=== PATIENT | female | born 1970 | race Asian ===

== ENCOUNTER → 2019-09-18 07:43 | Outpatient (CLI) | payer OTHER, SELFPAY ==
--- NOTE | 2019-09-18 | DI.MG.S_ITS ---
BILATERAL DIGITAL SCREENING MAMMOGRAM 3D/2D WITH CAD: 09/18/2019 Comparison is made to exams dated: 08/13/2018 mammogram, 06/20/2017 mammogram, and 06/02/2016 mammogram - [facility]. The tissue of both breasts is heterogeneously dense. This may lower the sensitivity of mammography. Current study was also evaluated with a Computer Aided Detection (CAD) system. There are benign calcifications in both breasts. There also is a biopsy clip in the left breast. No significant masses, calcifications, or other findings are seen in either breast. There has been no significant interval change. IMPRESSION: There is no mammographic evidence of malignancy. A 1 year screening mammogram is recommended. This exam was interpreted at Station ID: [id number]. NOTE: For mammograms, a report in lay terms will be sent to the patient. Approximately 15% of breast malignancies will not be visualized mammographically. In the management of a palpable breast mass, a negative mammogram must not discourage biopsy of a clinically suspicious lesion. Electronically Signed By: Tate colon/omar:09/18/2019 09:14:51 letter sent: Normal Exam ACR BI-RADS Category 2: Benign Finding(s) 3342F
== END ==
PROVIDERS: Family Provider Nurse Practitioner Family; PCP Nurse Practitioner Family; Referring Provider Family Medicine; Visit Provider Family Medicine
DX: Z12.31 Encounter for screening mammogram for malignant neoplasm of breast (principal)
CPT/HCPCS: 77063; 77067

== ENCOUNTER → 2020-11-17 15:47 | Outpatient (CLI) | payer OTHER, SELFPAY ==
--- NOTE | 2020-11-17 15:51 | DI.MG.S_ITS ---
BILATERAL DIGITAL SCREENING MAMMOGRAM 3D/2D WITH CAD: 11/17/2020 CLINICAL: Routine screening. Comparison is made to exams dated: 09/18/2019 mammogram - [facility], 08/27/2018 mammogram, 08/13/2018 mammogram, 06/20/2017 mammogram, 06/02/2016 mammogram, and 08/27/2018 ultrasound - [facility] [place]. The tissue of both breasts is heterogeneously dense. This may lower the sensitivity of mammography. Current study was also evaluated with a Computer Aided Detection (CAD) system. There are benign cysts in the right breast. There also are benign calcifications in both breasts. Additionally, there is a biopsy clip in the left breast. No significant masses, calcifications, or other findings are seen in either breast. There has been no significant interval change. IMPRESSION: BENIGN There is no mammographic evidence of malignancy. A 1 year screening mammogram is recommended. This exam was interpreted at Station ID: [id number]. NOTE: For mammograms, a report in lay terms will be sent to the patient. Approximately 15% of breast malignancies will not be visualized mammographically. In the management of a palpable breast mass, a negative mammogram must not discourage biopsy of a clinically suspicious lesion. Electronically Signed By: Yfn piper/omar:11/17/2020 16:35:47 letter sent: Normal Exam ACR BI-RADS Category 2: Benign Finding(s) 3342F
== END ==
PROVIDERS: Family Provider Nurse Practitioner Family; PCP Family Medicine; Referring Provider Family Medicine; Visit Provider Family Medicine
DX: Z12.31 Encounter for screening mammogram for malignant neoplasm of breast (principal)
CPT/HCPCS: 77063; 77067

== ENCOUNTER 2022-05-11 08:02 | Day surgery (SDC) | payer BC, OTHER, SELFPAY ==
--- NOTE | 2022-05-11 08:30 | PM.HP.1 ---
History of Present Illness History of Present Illness Date Patient Seen: 05/11/22 Time Patient Seen: 08:30 Chief complaint: Colonoscopy Narrative: Here for colon cancer screening. Review of Systems Review of Systems ROS: Yes All systems reviewed with the patient and are negative except as otherwise documented Exam Const General: cooperative HENMT Head: normal to inspection Eyes General: appearance normal, both eyes and all related structures Neck Neck: normal visual inspection Chest Chest: normal inspection of the chest Resp Effort & Inspection: normal respiratory effort Cardio Rate: regular rate GI Inspection: normal to inspection Skin General: no rashes or lesions noted Neuro General: patient alert and patient awake Extrem General: normal to inspection and no pedal edema Psych Appearance: grossly normal Assessment & Plan Assessment & Plan narrative: 51-year-old female indicated for colon cancer screening. Colonoscopy is pursued today. Time Spent With Patient Critical Care time: I spent a total of [] minutes of critical care time on this patient's care today; this time is exclusive of procedural time.
[2022-05-11 08:35] VITALS: BMI 24.2
[2022-05-11 08:40] VITALS: BP 143/80; PULSE 106; RESP 18; TEMP 37; O2SAT 100
[2022-05-11] MEDS: SODIUM CHLORIDE 0.9% 1,000 ML 84 ML IV (08:44)
[2022-05-11 09:09] LABS: COVID19 -Nasal RAPID Negative (Negative)
--- NOTE | 2022-05-11 09:26 | PM.PREOP ---
Pre-operative Note COVID-19 COVID-19 status: Negative Result date/Date tested (Pos, Neg/Pending): 05/11/22 Criteria for continued procedure: Possibility delay results in more complex future surgery or treatment Interval Note History & Physical reviewed/Exam performed by Physician: Yes Changes to H&P: No ASA Class (for procedural sedation): I
--- NOTE | 2022-05-11 09:44 | P.OP.COLON_ITS ---
Operative Date/Time/Diagnoses Date of procedure: 05/11/22 Time of procedure: 09:44 Pre-op diagnosis: Screening Post-op diagnosis: same Procedure & Clinicians Study performed: Colonoscopy Same procedure as scheduled: Yes Indications: Colon screen Surgeon: Baudilio Melara Procedure Notes SCOAP/Timeout: Done Procedure in detail: After the risks and benefits were explained, written and verbal informed consent was obtained. The patient was brought into the procedure room and placed into the left lateral decubitus position. Please see nurse do all operator notes for sedation details. Digital rectal examination was accomplished. The scope was introduced into the patient and advanced under direct visualization to the cecum as identified by the appendiceal orifice and ileocecal valve. The scope was slowly withdrawn to carefully examine the mucosa for any defects or lesions. Comprehensive imaging was accomplished throughout the rectum including the dentate line. The colon was decompressed, the scope was then removed from the patient who tolerated the procedure well. Pediatric colonoscope Bowel prep adequate Scope withdrawal time: 7 min Impression: No significant polyps mass lesions or inflammatory foci. Grade 2 hemorrhoids noted. Endoscopic diagnosis 1. Grade 2 hemorrhoids 2. Otherwise visually unremarkable colonoscopy. Post-procedure Plan for aftercare: Repeat colonoscopy 10 yrs. Disposition: PACU
[2022-05-11 09:49] VITALS: BP 95/51; PULSE 85; RESP 12; TEMP 36.2; O2SAT 96
[2022-05-11 09:52] VITALS: BP 92/57; PULSE 87; RESP 19; O2SAT 99
[2022-05-11 09:57] VITALS: BP 106/62; PULSE 87; RESP 20; O2SAT 99
[2022-05-11 10:05] VITALS: BP 110/75; PULSE 78; RESP 21; O2SAT 100
[2022-05-11 10:06] VITALS: BP 107/71; PULSE 78; RESP 24; O2SAT 100
--- NOTE | 2022-05-11 10:17 | SUR.PHASEII ---
pt given detailed instructions and states she understands discharge instructions. Pt to be discharged with her . No complaints voiced. pt had 2 cups of juice prior to discharge.
== END 2022-05-11 10:20 | disposition home or self-care (01) ==
PROVIDERS: Family Provider Nurse Practitioner Family; PCP Family Medicine; Referring Provider Internal Medicine Gastroenterology; Visit Provider Internal Medicine Gastroenterology
PROC: 0DJD8ZZ Inspection of Lower Intestinal Tract, Via Natural or Artificial Opening Endoscopic (ICD-10-PCS; CPT 45378; principal; 2022-05-11 09:30)
DX: Z12.11 Encounter for screening for malignant neoplasm of colon (principal); K64.1 Second degree hemorrhoids
CPT/HCPCS: 45378; 87635; C9803; J2704